=== PATIENT | male | born 1970 | race Caucasian/White ===

== ENCOUNTER 2018-04-15 17:36 | Emergency (ER) | payer BC ==
[~2018-04-15] VITALS: Ht 182.9 cm; Wt 144.5 kg
[~2018-04-15 17:36] MED LIST: COUMADIN7.5 MG PO; GLUCOPHAGE500 MG PO
[2018-04-15 17:44] VITALS: Ht 182.9 cm; Wt 144.5 kg
[2018-04-15] MEDS ORDERED: GLUCOPHAGE1000 MG PO (17:47)
[2018-04-15] MEDS ORDERED: COUMADIN1 MG PO (17:48)
[2018-04-15 18:16] LABS: BASOPHILS 0.2 % (0-2); HEMATOCRIT 44.3 % (42.0-54.0); HEMOGLOBIN 15.2 g/dL (13.5-17.5); IMMATURE GRANULOCYTES 0.3 % (0-5); LYMPHOCYTES 23.6 % (15-50); MCH 31.1 pg (26.0-34.0); MCHC 34.3 g/dL (31.0-37.0); MCV 90.8 fL (80.0-100.0); MEAN PLATELET VOLUME 9.9 fL (7.4-10.4); MONOCYTES 4.6 % (2-11); NEUTROPHILS 70.3 % (40-80); RBC 4.88 10x6/uL (4.20-6.10); RDW 13.5 % (11.5-14.5); WBC 9.5 10x3/uL (4.8-10.8)
[2018-04-15 18:22] LABS: PLATELET COUNT 283 10x3/uL (130-400)
[2018-04-15 18:41] LABS: APTT 23.9 SECONDS (22.8-39.4); INR 0.97 (0.85-1.17); PROTIME 12.5 SECONDS (11.6-15.0)
[2018-04-15 18:42] LABS: D-DIMER-QUANTITATIVE 0.79 ug/mLFEU (0.20-0.54)
[2018-04-15 18:44] LABS: ALBUMIN 3.7 g/dL (3.4-5.0); ALKALINE PHOSPHATASE 95 U/L (46-116); ALT (SGPT) 36 U/L (10-68); BILIRUBIN - TOTAL 0.19 mg/dL (0.2-1.3); CALC OSMOLALITY 288 mosm/kg (275-300); CALCIUM 8.8 mg/dL (8.5-10.1); CARBON DIOXIDE 26.2 mmol/L (21.0-32.0); CHLORIDE - SERUM 101 mmol/L (98-107); CREATININE - SERUM 0.7 mg/dL (0.6-1.3); PROTEIN - SERUM 7.8 g/dL (6.4-8.2); SODIUM 136 mmol/L (136-145); UREA NITROGEN 9 mg/dL (7-18); eGFR NON AFRICAN AMERICAN > 90 mL/min (90-120)
[2018-04-15 18:50] LABS: GLUCOSE 414 mg/dL (74-106)
[2018-04-15 20:55] VITALS: BP 132/78
== END 2018-04-15 20:58 | disposition home or self-care (01) ==
LOC: D.ER 17:36
PROVIDERS: Emergency Medicine
DX: M79.661 Pain in right lower leg (principal); E11.8 Type 2 diabetes mellitus with unspecified complications; Z86.718 Personal history of other venous thrombosis and embolism; Z79.01 Long term (current) use of anticoagulants

== ENCOUNTER 2019-01-16 17:42 | Emergency (ER) | payer OTHER ==
[~2019-01-16] VITALS: Ht 182.9 cm; Wt 143.2 kg
[~2019-01-16 17:42] MED LIST changes: +COUMADIN1 MG PO; +GLUCOPHAGE1000 MG PO
[2019-01-16 17:44] VITALS: Ht 182.9 cm; Wt 143.2 kg
[2019-01-16] MEDS ORDERED: EPIPEN 2-P0.3 MG/0.3 IM (19:11)
[2019-01-16] MEDS ORDERED: BENADRYL50 MG PO (19:12)
[2019-01-16 19:22] VITALS: BP 131/74
== END 2019-01-16 19:24 | disposition home or self-care (01) ==
LOC: D.ER 17:42
DX: T63.441A Toxic effect of venom of bees, accidental (unintentional), initial encounter (principal); Y92.89 Other specified places as the place of occurrence of the external cause